=== PATIENT | female | born 1980 | race Caucasian/White ===

== ENCOUNTER 2019-02-23 16:51 | Emergency (ER) ==
[2019-02-23 16:57] VITALS: TEMP 98.9; BMI 42.5
[2019-02-23] MEDS ORDERED: DILAUDID 1 MG/ML SYRINGE IM STA (17:32)
[2019-02-23] MEDS ORDERED: TENIVAC IM ONE ×2 (17:33→18:03)
[2019-02-23] MEDS ORDERED: TORADOL IM STA (17:58)
[2019-02-23] MEDS ORDERED: SILVADENE CREAM TP STA (17:58)
[2019-02-23] MEDS ORDERED: LIDOCAINE JELLY 2% MUCOUSMEMB STA (17:59)
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
[2019-02-23 18:54] VITALS: BP 174/88
== END 2019-02-23 19:08 | disposition home or self-care (01) ==
LOC: ED 16:51
DX: T25.122A Burn of first degree of left foot, initial encounter (principal); T23.171A Burn of first degree of right wrist, initial encounter; T24.101A Burn of first degree of unspecified site of right lower limb, except ankle and foot, initial encounter; X10.2XXA Contact with fats and cooking oils, initial encounter; F17.210 Nicotine dependence, cigarettes, uncomplicated
CPT/HCPCS: 90471; 90714; 96372; 99283

== ENCOUNTER 2019-02-27 11:18 | Emergency (ER) ==
[2019-02-27 11:25] VITALS: BP 178/108; TEMP 98.4; BMI 42.7
[2019-02-27] MEDS ORDERED: ROCEPHIN IM STA (11:48)
[2019-02-27] MEDS ORDERED: LIDOCAINE HCL 1% SDV IM STA (11:48)
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
[2019-02-27] MEDS ORDERED: LEVAQUIN PO STA (11:56)
[2019-02-27] MEDS ORDERED: LEVAQUIN PO SCH (12:00)
== END 2019-02-27 13:10 | disposition home or self-care (01) ==
LOC: ED 11:18
DX: L03.115 Cellulitis of right lower limb (principal); F17.210 Nicotine dependence, cigarettes, uncomplicated; X08.8XXD Exposure to other specified smoke, fire and flames, subsequent encounter
CPT/HCPCS: 87070; 96372; 99283

== ENCOUNTER 2019-03-02 02:22 | Emergency (ER) ==
[2019-03-02 02:23] VITALS: BMI 42.7
[2019-03-02 02:26] VITALS: BP 142/94; TEMP 98.6
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
[2019-03-02] MEDS ORDERED: ROCEPHIN IM STA (03:00)
[2019-03-02] MEDS ORDERED: LIDOCAINE HCL 1% SDV IM STA (03:00)
[2019-03-02] MEDS ORDERED: TORADOL IM STA (03:04)
== END 2019-03-02 03:43 | disposition home or self-care (01) ==
LOC: ED 02:22
DX: L03.116 Cellulitis of left lower limb (principal); F17.210 Nicotine dependence, cigarettes, uncomplicated
CPT/HCPCS: 96372; 99282